=== PATIENT | female | born 1960 | race Caucasian/White ===

== ENCOUNTER → 2017-01-06 | Outpatient (CLI) | payer OTHER ==
[2017-01-06 12:30] LABS: FREE T3 3.55 pg/mL (2.77-5.27)
[2017-01-06 12:43] LABS: THYROID STIMULATING HORMONE 0.17 uIU/mL (0.47-4.68)
== END ==
LOC: OD 10:47
PROVIDERS: ATTEND Family Medicine
DX: E03.9 Hypothyroidism, unspecified (principal)
CPT/HCPCS: 36415; 84439; 84443; 84481

== ENCOUNTER → 2017-03-04 | Outpatient (CLI) | payer OTHER ==
[2017-03-04 12:49] LABS: FREE T3 3.56 pg/mL (2.77-5.27)
[2017-03-04 13:19] LABS: THYROID STIMULATING HORMONE < 0.02 uIU/mL (0.47-4.68)
[2017-03-05 07:30] LABS: VITAMIN D 25-HYDROXY 55.5 ng/mL (30.0-100.0)
[2017-03-05 11:57] LABS: THYROXINE (T4) 6.9 ug/dL (4.5-12.0)
[2017-03-05 13:38] LABS: THYROID PEROXIDASE (TPO) AB 38 IU/mL (0-34)
[2017-03-05 14:13] LABS: THYROGLOBULIN AB 259.6 IU/mL (0.0-0.9)
[2017-03-08 06:05] LABS: THYROID STIM IMMUNOGLOBULIN 599 % (0-139)
== END ==
LOC: OD 11:12
PROVIDERS: ATTEND Family Medicine
DX: E03.9 Hypothyroidism, unspecified (principal); E55.9 Vitamin D deficiency, unspecified; R53.83 Other fatigue
CPT/HCPCS: 36415; 82306; 82607; 83519; 84436; 84439; 84443; 84480; 84481; 86376

== ENCOUNTER → 2017-07-28 | Outpatient (CLI) | payer OTHER ==
[2017-07-28 08:54] LABS: APPEARANCE,URINE CLEAR; BILIRUBIN,URINE NEGATIVE (NEGATIVE); GLUCOSE, URINE NEGATIVE (NEGATIVE); KETONES,URINE NEGATIVE (NEGATIVE); LEUKOCYTE ESTERASE,URINE NEGATIVE (NEGATIVE); NITRITE,URINE NEGATIVE (NEGATIVE); PROTEIN,URINE NEGATIVE (NEGATIVE); URINE SPECIFIC GRAVITY 1.004; UROBILINOGEN,URINE NEGATIVE mg/dL (<2.0)
[2017-07-28 09:22] LABS: CHOLESTEROL 239.24 mg/dL (0-200); Direct HDL 67 mg/dL (>40); TRIGLYCERIDES 116 mg/dL (<150)
[2017-07-28 09:32] LABS: DIRECT LDL 137 mg/dL (<100)
[2017-07-28 09:43] LABS: FREE T3 3.79 pg/mL (2.77-5.27)
[2017-07-28 09:56] LABS: THYROID STIMULATING HORMONE 0.76 uIU/mL (0.47-4.68)
[2017-07-29 06:40] LABS: THYROXINE (T4) 5.4 ug/dL (4.5-12.0)
[2017-07-29 07:08] LABS: VITAMIN D 25-HYDROXY 66.5 ng/mL (30.0-100.0)
[2017-07-29 14:40] LABS: THYROID PEROXIDASE (TPO) AB 31 IU/mL (0-34)
[2017-07-29 14:56] LABS: THYROGLOBULIN AB 235.7 IU/mL (0.0-0.9)
== END ==
LOC: OD 07:48
PROVIDERS: ATTEND Family Medicine
DX: E03.9 Hypothyroidism, unspecified (principal); E55.9 Vitamin D deficiency, unspecified; R53.83 Other fatigue
CPT/HCPCS: 36415; 80061; 81001; 82306; 82607; 83519; 84436; 84439; 84443; 84480; 84481; 86376